=== PATIENT | male | born 1990 | race Caucasian/White ===

== ENCOUNTER 2016-11-13 14:47 | Emergency (ER) | payer OTHER ==
[2016-11-13 14:54] VITALS: RESP 16; TEMP 98.8
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
[2016-11-13 15:49] VITALS: BP 118/84; PULSE 64; O2SAT 97
== END 2016-11-13 15:45 | disposition home or self-care (01) ==
DX: S22.31XA Fracture of one rib, right side, initial encounter for closed fracture (principal); X58.XXXA Exposure to other specified factors, initial encounter